=== PATIENT | male | born 1965 | race Caucasian/White ===

== ENCOUNTER → 2024-08-31 15:58 | Outpatient (CLI) | payer OTHER, SELFPAY ==
--- NOTE | 2024-08-31 | DI.ECHO.S_ITS ---
[facility] : : [address] : : [place] : : [id number] : : Phone: [phone] Echocardiogram Report + + :Name: FLORIDA FOSTER Study Date: 08/31/2024 Height: 72 in : :[facility] ReadingLocation: Weight: 295 lb : : Gender: Male BSA: 2.5 m2 : :: 1965 Age: 59 yrs BP: 185/97 mmHg: :Reason For Study: CARDIOMEGALY : :Ordering Physician: ROSINA ROPER Performed By: [facility] : :Referring: ROSINA ROPER : + + Interpretation Summary TDS - BODY HABITUS 1. The left ventricular contractility is normal. Estimated ejection fraction is greater than 60% with no segmental wall motion abnormalities. No LVH noted. Normal diastolic function. 2. The right ventricular contractility is normal. 3. There is left atrial enlargement. All other cardiac chambers are of normal size. 4. No significant valvular abnormalities. 5. No intracardiac shunts noted on agitated saline contrast study. 6. No intracardiac masses nor thrombi. 7. No hemodynamically significant pericardial effusion. Conclusion: Normal biventricular function with no significant valvular abnormalities and isolated left atrial enlargement without intracardiac shunts. Procedure: A two-dimensional transthoracic echocardiogram with color flow and Doppler was performed. A contrast injection of Definity was performed to improve assessment of LV function. A saline contrast injection was performed to assess for cardiac shunting. The study quality was technically adequate. There is no prior echocardiogram noted for this patient. The study quality was technically good. The patient was in normal sinus rhythm during the exam. Left Ventricle: The left ventricle is normal in size. There is normal left ventricular wall thickness. There is no ventricular septal defect visualized. The ejection fraction is estimated to be 60-65%. There are no focal wall motion abnormalities. Right Ventricle: The right ventricle is not well visualized. The right ventricular systolic function is normal. Atria: The left atrium is moderately dilated. Right atrial size is normal. Injection of contrast documented no interatrial shunt. Mitral Valve: The mitral valve is normal in structure and function. There is trace mitral regurgitation. Aortic Valve: The aortic valve is grossly normal. No aortic regurgitation is present. Tricuspid Valve: The tricuspid valve is normal in structure and function. No tricuspid regurgitation. Pulmonic Valve: The pulmonic valve is not well seen, but is grossly normal. The pulmonic valve is not well visualized. There is trace pulmonic regurgitation. Great Vessels: The aortic root is normal size. The dimensions of the ascending aorta are normal. The pulmonary artery is normal size. The inferior vena cava was not visualized. Pericardium/ Pleura There is no pericardial effusion. MMode/2D Measurements & Calculations LVIDd: 5.3 cm LVOT diam: 2.3 cm LVIDs: 3.3 cm Ao root diam: 3.6 cm FS: 36.5 % EPSS: 0.68 cm IVSd: 1.1 cm LVPWd: 0.91 cm LV montes. diameter/BSA (cm/m^2): 2.1 LV sys. diameter/BSA (cm/m^2): 1.3 LA A2 area: 28.0 cm2 RA long axis: 4.6 cm LA A4 area: 26.7 cm2 RA area: 13.9 cm2 LA length (vol): 6.3 cm RA vol: 36.3 ml LA vol: 100.5 ml RA : 14.4 ml/m2 LA vol index: 40.0 ml/m2 TAPSE: 3.6 cm Doppler Measurements & Calculations Ao V2 max: 138.3 cm/sec LVOT Max Tyler: 111.6 cm/sec Ao V2 mean: 101.5 cm/sec LV V1 max P.0 mmHg Ao max P.6 mmHg LV V1 VTI: 25.9 cm Ao mean P.5 mmHg KANDY(I,D): 3.6 cm2 Ao V2 VTI: 30.1 cm KANDY(V,D): 3.3 cm2 sev ratio: 0.86 KANDY indexed to BSA (cm^2/m^2): 1.4 MV E max tyler: 60.8 cm/sec PA V2 max: 74.4 cm/sec MV A max tyler: 65.0 cm/sec PA V2 mean: 54.4 cm/sec MV E/A: 0.94 PA mean P.3 mmHg Med Peak E' Tyler: 7.2 cm/sec PA pr(Accel): 24.2 mmHg E/E' med: 8.4 Lat Peak E' Tyler: 10.1 cm/sec E/E' lat: 6.0 E/e' average: 7.2 MV dec time: 0.24 sec SV(LVOT): 107.3 ml Reading Physician:
== END ==
PROVIDERS: Referring Provider Internal Medicine; Visit Provider Internal Medicine
DX: I51.7 Cardiomegaly (principal)
CPT/HCPCS: C8929; Q9957